=== PATIENT | male | born 1975 | race Two or more races ===

== ENCOUNTER 2016-10-09 22:18 | Emergency (ER) | payer MEDICAID ==
[~2016-10-09] VITALS: Ht 170.2 cm; Wt 86.4 kg
[2016-10-09 23:25] VITALS: BP 133/86
== END 2016-10-09 23:29 | disposition home or self-care (01) ==
LOC: EMS 22:19
DX: L03.116 Cellulitis of left lower limb (principal); S80.862A Insect bite (nonvenomous), left lower leg, initial encounter; F17.210 Nicotine dependence, cigarettes, uncomplicated; W57.XXXA Bitten or stung by nonvenomous insect and other nonvenomous arthropods, initial encounter; Y93.89 Activity, other specified; Y92.89 Other specified places as the place of occurrence of the external cause; Y99.8 Other external cause status
CPT/HCPCS: 99283

== ENCOUNTER 2016-12-23 17:49 | Emergency (ER) | payer MEDICAID, OTHER ==
[~2016-12-23] VITALS: Ht 170.2 cm; Wt 90.9 kg
[2016-12-23] MEDS ORDERED: IBUPROFEN 800 MG TABLET PO ONE (19:00)
[2016-12-23 20:00] VITALS: BP 138/86
== END 2016-12-23 20:10 | disposition home or self-care (01) ==
LOC: EMS 17:50
DX: J40 Bronchitis, not specified as acute or chronic (principal); F17.210 Nicotine dependence, cigarettes, uncomplicated
CPT/HCPCS: 71020; 99284